=== PATIENT | male | born 1970 | race Caucasian/White ===

== ENCOUNTER 2017-09-15 20:23 | Inpatient (IN) ==
[2017-09-15] MEDS ORDERED: PROMETHAZINE 25 MG/1 ML VIAL IM PRN (23:55)
[2017-09-15] MEDS ORDERED: ACETAMINOPHEN 325 MG TABLET PO PRN (23:55)
[2017-09-15] MEDS ORDERED: TUBERCULIN SKIN TEST 0.1 ML SYRINGE INTRADERM ONE (23:55)
[2017-09-15] MEDS ORDERED: SODIUM CHLORIDE 0.9% 1,000 ML IV ONE (23:55)
[2017-09-15] MEDS ORDERED: MORPHINE 2 MG/1 ML SYRINGE IV PRN (23:55)
[2017-09-15] MEDS ORDERED: ONDANSETRON 4 MG/2 ML VIAL IV PRN (23:55)
[2017-09-15] MEDS ORDERED: NICOTINE 21 MG/24 HR PATCH TRANSDERM PRN (23:55)
[2017-09-16 00:40] LABS: Basophils # 0.1 10*3/uL (0.0-0.2); Basophils % 0.6 % (0.0-0.8); Eosinophils # 0.3 10*3/uL (0.0-0.87); Eosinophils % 2.1 % (0.00-10.9); Hematocrit 42.9 VOL% (42.0-52.0); Hemoglobin 14.1 GM/DL (14.0-18.0); Immature Granulocytes % 0.4 %; Immature Granulocytes Absolute 0.05 #; Lymphocytes # 4.7 10*3/uL (1.4-4.0); Lymphocytes % 35.7 % (21.2-54.2); Mean Corpuscular HGB Conc 32.9 GM/DL (32-36); Mean Corpuscular Hemoglobin 28 PG (27-34); Mean Corpuscular Volume 86.5 FL (87-102); Mean Platelet Volume 10.7 FL (9.6-12.0); Monocytes % 7.9 % (1.7-12.7); Neutrophils % 53.3 % (38.7-73.9); Platelet Count 263 T/CUMM (130-400); Red Blood Count 4.96 MC/CUMM (3.8-5.5); White Blood Count 13.1 T/CUMM (4-12)
[2017-09-16 00:47] LABS: Albumin 3.5 G/DL (3.4-5.0); Bilirubin,Total 1.5 MG/DL (0.2-1.0); Calcium 8.7 MG/DL (8.5-10.1); Magnesium 1.8 MG/DL (1.8-2.4); Osmolality,Calculated 284.1 MOS/KG (273-304); Potassium 4.5 MMOL/L (3.5-5.1); Total Protein 6.3 G/DL (6.4-8.3)
[2017-09-16] MEDS: LEVOFLOXACIN INJ 750 MG in PREMIX 1 EACH IV SCH ×2 (01:28→23:54)
[2017-09-16] MEDS: ENOXAPARIN 40 MG/0.4 ML SYRINGE SUBCUT SCH ×2 (01:29→21:29)
[2017-09-16] MEDS: SODIUM CHLORIDE 0.9% 1,000 ML IV SCH ×5 (02:45→23:54)
[2017-09-16] MEDS: DOCUSATE SODIUM 100 MG CAPSULE PO SCH ×2 (08:32→21:29)
[2017-09-16] MEDS: PANTOPRAZOLE 40 MG TABLET PO SCH (08:32)
[2017-09-16] MEDS ORDERED: ALBUTEROL 2.5 MG/3 ML NEB RESP TX PRN (11:37)
[2017-09-16] MEDS ORDERED: NON-FORMULARY MEDICATION (Umeclidinium Brm/Vilanterol Tr [Anoro Ellipta] 1 PUFF) INH SCH (11:45)
[2017-09-16] MEDS: VALSARTAN 80 MG TABLET PO SCH (12:06)
[2017-09-16] MEDS: MONTELUKAST 10 MG TABLET PO SCH (12:07)
[2017-09-16] MEDS: SERTRALINE 25 MG TABLET PO SCH (12:07)
[2017-09-16] MEDS: ALBUTEROL/IPRATROPIUM 3 ML NEB RESP TX SCH ×2 (14:30→19:50)
[2017-09-17] MEDS: CLORAZEPATE 3.75 MG TABLET PO PRN ×2 (00:07→23:12)
[2017-09-17] MEDS: ALBUTEROL/IPRATROPIUM 3 ML NEB RESP TX SCH ×4 (01:20→18:59)
[2017-09-17 05:37] LABS: Basophils # 0.1 10*3/uL (0.0-0.2); Basophils % 0.9 % (0.0-0.8); Eosinophils # 0.3 10*3/uL (0.0-0.87); Eosinophils % 3.7 % (0.00-10.9); Hematocrit 40.7 VOL% (42.0-52.0); Hemoglobin 13.4 GM/DL (14.0-18.0); Immature Granulocytes % 0.3 %; Immature Granulocytes Absolute 0.03 #; Lymphocytes # 3.3 10*3/uL (1.4-4.0); Lymphocytes % 36.6 % (21.2-54.2); Mean Corpuscular HGB Conc 32.9 GM/DL (32-36); Mean Corpuscular Hemoglobin 29 PG (27-34); Mean Corpuscular Volume 86.4 FL (87-102); Mean Platelet Volume 11.5 FL (9.6-12.0); Monocytes # 0.8 10*3/uL (0.11-0.8); Neutrophils # 4.4 10*3/uL (1.4-7.4); Neutrophils % 49.5 % (38.7-73.9); Platelet Count 235 T/CUMM (130-400); Red Blood Count 4.71 MC/CUMM (3.8-5.5)
[2017-09-17 06:10] LABS: Calcium 8.5 MG/DL (8.5-10.1); Osmolality,Calculated 279.4 MOS/KG (273-304); Potassium 4.3 MMOL/L (3.5-5.1)
[2017-09-17] MEDS: POTASSIUM CHLORIDE 8 MEQ CAPSULE PO SCH ×2 (08:36→20:42)
[2017-09-17] MEDS: VALSARTAN 80 MG TABLET PO SCH (08:37)
[2017-09-17] MEDS: DOCUSATE SODIUM 100 MG CAPSULE PO SCH ×2 (08:37→20:41)
[2017-09-17] MEDS: PANTOPRAZOLE 40 MG TABLET PO SCH (08:37)
[2017-09-17] MEDS: MONTELUKAST 10 MG TABLET PO SCH (08:37)
[2017-09-17] MEDS: FUROSEMIDE 20 MG/2 ML VIAL IV SCH ×2 (08:37→15:05)
[2017-09-17] MEDS: SERTRALINE 25 MG TABLET PO SCH (08:37)
[2017-09-17] MEDS: SODIUM CHLORIDE 0.9% 1,000 ML IV SCH ×2 (08:38→15:05)
[2017-09-17 10:33] LABS: Barbiturates Screen,Urine Negative (Negative); Benzodiazepines Screen,Urine Positive (Negative); Cannabinoid Screen,Urine Negative (Negative); Opiate Screen,Urine Positive (Negative); Phencyclidine Screen,Urine Negative (Negative)
[2017-09-17] MEDS: DORNASE ALFA 2.5 MG/2.5 ML VIAL RESP TX SCH ×2 (11:40→19:13)
[2017-09-17] MEDS: ASPIRIN CHEW 81 MG TABLET PO SCH (14:03)
[2017-09-17] MEDS: CARVEDILOL 3.125 MG TABLET PO SCH ×2 (14:03→20:41)
[2017-09-17] MEDS: SACUBITRIL/VALSARTAN 49-51 MG TABLET PO SCH ×2 (14:03→20:41)
[2017-09-17] MEDS: ENOXAPARIN 40 MG/0.4 ML SYRINGE SUBCUT SCH (20:42)
[2017-09-17] MEDS: LEVOFLOXACIN INJ 750 MG in PREMIX 1 EACH IV SCH (23:11)
[2017-09-18] MEDS: ALBUTEROL/IPRATROPIUM 3 ML NEB RESP TX SCH ×4 (00:29→18:53)
[2017-09-18 04:21] LABS: Bilirubin,Total 1.4 MG/DL (0.2-1.0); Calcium 8.3 MG/DL (8.5-10.1); Total Protein 5.6 G/DL (6.4-8.3)
[2017-09-18 04:22] LABS: Potassium 4.1 MMOL/L (3.5-5.1)
[2017-09-18] MEDS: DORNASE ALFA 2.5 MG/2.5 ML VIAL RESP TX SCH ×2 (08:00→18:53)
[2017-09-18] MEDS ORDERED: DIAZEPAM 5 MG TABLET PO ONE ×2 (08:00→10:53)
[2017-09-18] MEDS ORDERED: POTASSIUM CHLORIDE RIDER 10 MEQ in PREMIX 1 EACH IV PRN (10:53)
[2017-09-18] MEDS ORDERED: MAGNESIUM SULF RIDER 2 GM in PREMIX 1 EACH IV PRN (10:53)
[2017-09-18] MEDS ORDERED: diphenhydrAMINE CAP 25 MG CAPSULE PO ONE (10:53)
[2017-09-18 11:08] LABS: Risk Ratio 4.81; VLDL CHOLESTEROL 15.4 MG/DL
[2017-09-18] MEDS: DOCUSATE SODIUM 100 MG CAPSULE PO SCH ×2 (12:58→21:23)
[2017-09-18] MEDS: PANTOPRAZOLE 40 MG TABLET PO SCH (12:58)
[2017-09-18] MEDS: POTASSIUM CHLORIDE 8 MEQ CAPSULE PO SCH ×2 (12:58→21:24)
[2017-09-18] MEDS: MONTELUKAST 10 MG TABLET PO SCH (12:58)
[2017-09-18] MEDS: GABAPENTIN 100 MG CAPSULE PO SCH ×3 (12:59→21:24)
[2017-09-18] MEDS: traMADol 50 MG TABLET PO SCH ×2 (12:59→21:25)
[2017-09-18] MEDS: ASPIRIN CHEW 81 MG TABLET PO SCH (12:59)
[2017-09-18] MEDS: CARVEDILOL 3.125 MG TABLET PO SCH ×2 (13:00→21:23)
[2017-09-18] MEDS: SERTRALINE 25 MG TABLET PO SCH (13:00)
[2017-09-18] MEDS: SACUBITRIL/VALSARTAN 49-51 MG TABLET PO SCH ×3 (13:01→21:22)
[2017-09-18] MEDS: FUROSEMIDE 20 MG/2 ML VIAL IV SCH ×2 (13:02→16:12)
[2017-09-18] MEDS: ENOXAPARIN 40 MG/0.4 ML SYRINGE SUBCUT SCH (21:27)
[2017-09-19] MEDS: ALBUTEROL/IPRATROPIUM 3 ML NEB RESP TX SCH ×4 (00:06→19:17)
[2017-09-19] MEDS: LEVOFLOXACIN INJ 750 MG in PREMIX 1 EACH IV SCH (01:14)
[2017-09-19 04:55] LABS: Basophils # 0.1 10*3/uL (0.0-0.2); Basophils % 0.6 % (0.0-0.8); Eosinophils # 0.4 10*3/uL (0.0-0.87); Eosinophils % 5.2 % (0.00-10.9); Hematocrit 40.4 VOL% (42.0-52.0); Hemoglobin 13.5 GM/DL (14.0-18.0); Immature Granulocytes % 0.4 %; Immature Granulocytes Absolute 0.03 #; Lymphocytes # 2.9 10*3/uL (1.4-4.0); Lymphocytes % 33.5 % (21.2-54.2); Mean Corpuscular HGB Conc 33.4 GM/DL (32-36); Mean Corpuscular Hemoglobin 29 PG (27-34); Mean Corpuscular Volume 86.5 FL (87-102); Mean Platelet Volume 11.3 FL (9.6-12.0); Monocytes # 0.9 10*3/uL (0.11-0.8); Neutrophils # 4.3 10*3/uL (1.4-7.4); Neutrophils % 50.3 % (38.7-73.9); Platelet Count 254 T/CUMM (130-400); Red Blood Count 4.67 MC/CUMM (3.8-5.5); Red Cell Distribution Width 14.9 % (9.3-17.3); White Blood Count 8.5 T/CUMM (4-12)
[2017-09-19 05:24] LABS: Calcium 8.2 MG/DL (8.5-10.1); Osmolality,Calculated 280.3 MOS/KG (273-304)
[2017-09-19] MEDS ORDERED: LIDOCAINE 1% 20 ML VIAL ONE (07:28)
[2017-09-19] MEDS ORDERED: MEPERIDINE 25 MG/1 ML VIAL ONE (07:41)
[2017-09-19] MEDS ORDERED: MIDAZOLAM 2 MG/2 ML VIAL ONE (07:42)
[2017-09-19] MEDS ORDERED: HEPARIN 5,000 UNIT/1 ML VIAL ONE (07:51)
[2017-09-19] MEDS ORDERED: TIROFIBAN 5,000 MCG/100 ML PREMIX IV ONE (07:58)
[2017-09-19] MEDS ORDERED: TICAGRELOR 90 MG TABLET ONE (07:58)
[2017-09-19] MEDS ORDERED: diphenhydrAMINE CAP 25 MG CAPSULE PO ONE (08:00)
[2017-09-19] MEDS ORDERED: DIAZEPAM 5 MG TABLET PO ONE (08:00)
[2017-09-19] MEDS ORDERED: TIROFIBAN 5,000 MCG/100 ML PREMIX IV SCH (08:16)
[2017-09-19] MEDS ORDERED: NITROGLYCERIN DRIP 50 MG/250 ML BOTTLE IV ONE (08:23)
[2017-09-19] MEDS: DORNASE ALFA 2.5 MG/2.5 ML VIAL RESP TX SCH ×2 (09:11→19:29)
[2017-09-19] MEDS ORDERED: SODIUM CHLORIDE 0.9% 1,000 ML IV SCH (09:30)
[2017-09-19] MEDS: SACUBITRIL/VALSARTAN 49-51 MG TABLET PO SCH ×2 (10:50→21:15)
[2017-09-19] MEDS: CARVEDILOL 3.125 MG TABLET PO SCH ×2 (10:51→21:16)
[2017-09-19] MEDS: MONTELUKAST 10 MG TABLET PO SCH (10:59)
[2017-09-19] MEDS: PANTOPRAZOLE 40 MG TABLET PO SCH (11:00)
[2017-09-19] MEDS: GABAPENTIN 100 MG CAPSULE PO SCH ×3 (11:00→21:16)
[2017-09-19] MEDS: SERTRALINE 25 MG TABLET PO SCH (11:00)
[2017-09-19] MEDS: POTASSIUM CHLORIDE 8 MEQ CAPSULE PO SCH ×2 (11:01→21:16)
[2017-09-19] MEDS: DOCUSATE SODIUM 100 MG CAPSULE PO SCH ×2 (11:02→21:16)
[2017-09-19] MEDS: ASPIRIN CHEW 81 MG TABLET PO SCH ×2 (11:03→11:29)
[2017-09-19] MEDS: traMADol 50 MG TABLET PO SCH ×2 (11:04→21:15)
[2017-09-19] MEDS: FUROSEMIDE 20 MG/2 ML VIAL IV SCH ×2 (11:10→15:35)
[2017-09-19] MEDS: TICAGRELOR 90 MG TABLET PO SCH (21:15)
[2017-09-19] MEDS: traZODone 50 MG TABLET PO PRN (21:15)
[2017-09-19] MEDS: ROSUVASTATIN 10 MG TABLET PO SCH (21:16)
[2017-09-20] MEDS: ALBUTEROL/IPRATROPIUM 3 ML NEB RESP TX SCH ×4 (00:59→19:43)
[2017-09-20] MEDS: LEVOFLOXACIN INJ 750 MG in PREMIX 1 EACH IV SCH (01:43)
[2017-09-20 05:03] LABS: Basophils # 0.1 10*3/uL (0.0-0.2); Basophils % 0.6 % (0.0-0.8); Eosinophils # 0.3 10*3/uL (0.0-0.87); Eosinophils % 3.5 % (0.00-10.9); Hematocrit 42.9 VOL% (42.0-52.0); Hemoglobin 13.7 GM/DL (14.0-18.0); Immature Granulocytes % 0.2 %; Immature Granulocytes Absolute 0.02 #; Lymphocytes # 2.6 10*3/uL (1.4-4.0); Lymphocytes % 30.2 % (21.2-54.2); Mean Corpuscular HGB Conc 31.9 GM/DL (32-36); Mean Corpuscular Hemoglobin 28 PG (27-34); Mean Corpuscular Volume 88.3 FL (87-102); Mean Platelet Volume 10.7 FL (9.6-12.0); Monocytes # 0.9 10*3/uL (0.11-0.8); Monocytes % 10.2 % (1.7-12.7); Neutrophils # 4.7 10*3/uL (1.4-7.4); Neutrophils % 55.3 % (38.7-73.9); Platelet Count 239 T/CUMM (130-400); Red Blood Count 4.86 MC/CUMM (3.8-5.5); Red Cell Distribution Width 14.7 % (9.3-17.3); White Blood Count 8.5 T/CUMM (4-12)
[2017-09-20 05:28] LABS: Albumin 2.9 G/DL (3.4-5.0); Bilirubin,Total 1.1 MG/DL (0.2-1.0); Calcium 8.3 MG/DL (8.5-10.1); Osmolality,Calculated 274.5 MOS/KG (273-304); Total Protein 5.9 G/DL (6.4-8.3)
[2017-09-20] MEDS: DORNASE ALFA 2.5 MG/2.5 ML VIAL RESP TX SCH ×2 (07:37→19:43)
[2017-09-20] MEDS: ASPIRIN CHEW 81 MG TABLET PO SCH (09:05)
[2017-09-20] MEDS: MONTELUKAST 10 MG TABLET PO SCH (09:05)
[2017-09-20] MEDS: PANTOPRAZOLE 40 MG TABLET PO SCH (09:05)
[2017-09-20] MEDS: GABAPENTIN 100 MG CAPSULE PO SCH ×3 (09:05→21:47)
[2017-09-20] MEDS: traMADol 50 MG TABLET PO SCH ×2 (09:05→21:47)
[2017-09-20] MEDS: SERTRALINE 25 MG TABLET PO SCH (09:05)
[2017-09-20] MEDS: CARVEDILOL 3.125 MG TABLET PO SCH ×2 (09:06→21:26)
[2017-09-20] MEDS: SACUBITRIL/VALSARTAN 49-51 MG TABLET PO SCH ×2 (09:06→21:47)
[2017-09-20] MEDS: TICAGRELOR 90 MG TABLET PO SCH ×2 (09:06→21:47)
[2017-09-20] MEDS: POTASSIUM CHLORIDE 8 MEQ CAPSULE PO SCH ×2 (09:06→21:47)
[2017-09-20] MEDS: DOCUSATE SODIUM 100 MG CAPSULE PO SCH ×2 (09:06→21:47)
[2017-09-20] MEDS: FUROSEMIDE 20 MG/2 ML VIAL IV SCH ×2 (09:06→15:04)
[2017-09-20] MEDS: ROSUVASTATIN 10 MG TABLET PO SCH (21:47)
[2017-09-21] MEDS: ALBUTEROL/IPRATROPIUM 3 ML NEB RESP TX SCH ×4 (00:32→21:22)
[2017-09-21] MEDS: LEVOFLOXACIN INJ 750 MG in PREMIX 1 EACH IV SCH (01:30)
[2017-09-21 04:44] LABS: Basophils # 0.1 10*3/uL (0.0-0.2); Basophils % 0.7 % (0.0-0.8); Eosinophils # 0.4 10*3/uL (0.0-0.87); Hematocrit 44.1 VOL% (42.0-52.0); Hemoglobin 14.7 GM/DL (14.0-18.0); Immature Granulocytes % 0.3 %; Immature Granulocytes Absolute 0.03 #; Lymphocytes # 2.5 10*3/uL (1.4-4.0); Lymphocytes % 27.5 % (21.2-54.2); Mean Corpuscular HGB Conc 33.3 GM/DL (32-36); Mean Corpuscular Hemoglobin 29 PG (27-34); Mean Corpuscular Volume 85.5 FL (87-102); Mean Platelet Volume 10.3 FL (9.6-12.0); Monocytes # 0.9 10*3/uL (0.11-0.8); Monocytes % 9.4 % (1.7-12.7); Neutrophils # 5.3 10*3/uL (1.4-7.4); Neutrophils % 58.1 % (38.7-73.9); Platelet Count 253 T/CUMM (130-400); Red Blood Count 5.16 MC/CUMM (3.8-5.5); Red Cell Distribution Width 14.6 % (9.3-17.3); White Blood Count 9.1 T/CUMM (4-12)
[2017-09-21 05:13] LABS: Calcium 8.6 MG/DL (8.5-10.1); Magnesium 1.8 MG/DL (1.8-2.4); Osmolality,Calculated 277.4 MOS/KG (273-304)
[2017-09-21] MEDS: DORNASE ALFA 2.5 MG/2.5 ML VIAL RESP TX SCH ×2 (07:48→21:22)
[2017-09-21] MEDS: ASPIRIN CHEW 81 MG TABLET PO SCH (08:58)
[2017-09-21] MEDS: GABAPENTIN 100 MG CAPSULE PO SCH ×3 (08:58→22:30)
[2017-09-21] MEDS: POTASSIUM CHLORIDE 8 MEQ CAPSULE PO SCH ×2 (08:58→22:31)
[2017-09-21] MEDS: SACUBITRIL/VALSARTAN 49-51 MG TABLET PO SCH ×2 (08:58→22:29)
[2017-09-21] MEDS: DOCUSATE SODIUM 100 MG CAPSULE PO SCH ×2 (08:58→22:32)
[2017-09-21] MEDS: traMADol 50 MG TABLET PO SCH ×2 (08:58→22:32)
[2017-09-21] MEDS: SERTRALINE 25 MG TABLET PO SCH (08:58)
[2017-09-21] MEDS: MONTELUKAST 10 MG TABLET PO SCH (08:58)
[2017-09-21] MEDS: PANTOPRAZOLE 40 MG TABLET PO SCH (08:58)
[2017-09-21] MEDS: LEVOFLOXACIN 500 MG TABLET PO SCH (08:58)
[2017-09-21] MEDS: FUROSEMIDE 20 MG/2 ML VIAL IV SCH ×2 (08:59→15:42)
[2017-09-21] MEDS: CARVEDILOL 3.125 MG TABLET PO SCH ×3 (09:04→22:33)
[2017-09-21] MEDS: ROSUVASTATIN 10 MG TABLET PO SCH (22:29)
[2017-09-21] MEDS: traZODone 50 MG TABLET PO PRN ×2 (22:30→22:37)
[2017-09-22] MEDS: ALBUTEROL/IPRATROPIUM 3 ML NEB RESP TX SCH ×4 (00:55→20:26)
[2017-09-22 05:05] LABS: Calcium 8.5 MG/DL (8.5-10.1); Magnesium 1.9 MG/DL (1.8-2.4); Osmolality,Calculated 277.5 MOS/KG (273-304)
[2017-09-22] MEDS: DORNASE ALFA 2.5 MG/2.5 ML VIAL RESP TX SCH ×2 (07:32→20:30)
[2017-09-22] MEDS: CARVEDILOL 3.125 MG TABLET PO SCH ×3 (09:06→22:35)
[2017-09-22] MEDS: ASPIRIN CHEW 81 MG TABLET PO SCH (09:07)
[2017-09-22] MEDS: SACUBITRIL/VALSARTAN 49-51 MG TABLET PO SCH ×2 (09:07→22:36)
[2017-09-22] MEDS: POTASSIUM CHLORIDE 8 MEQ CAPSULE PO SCH ×2 (09:08→22:35)
[2017-09-22] MEDS: DOCUSATE SODIUM 100 MG CAPSULE PO SCH ×2 (09:08→22:35)
[2017-09-22] MEDS: SERTRALINE 25 MG TABLET PO SCH (09:08)
[2017-09-22] MEDS: PANTOPRAZOLE 40 MG TABLET PO SCH (09:08)
[2017-09-22] MEDS: GABAPENTIN 100 MG CAPSULE PO SCH ×3 (09:08→22:34)
[2017-09-22] MEDS: LEVOFLOXACIN 500 MG TABLET PO SCH (09:08)
[2017-09-22] MEDS: traMADol 50 MG TABLET PO SCH ×2 (09:08→22:35)
[2017-09-22] MEDS: MONTELUKAST 10 MG TABLET PO SCH (09:08)
[2017-09-22] MEDS: FUROSEMIDE 20 MG/2 ML VIAL IV SCH (09:10)
[2017-09-22] MEDS ORDERED: FUROSEMIDE 40 MG TABLET PO SCH (16:00)
[2017-09-22] MEDS: ROSUVASTATIN 10 MG TABLET PO SCH (22:35)
[2017-09-22] MEDS: traZODone 50 MG TABLET PO PRN (22:36)
[2017-09-23] MEDS: ALBUTEROL/IPRATROPIUM 3 ML NEB RESP TX SCH ×3 (00:39→14:15)
[2017-09-23 05:36] LABS: Calcium 8.4 MG/DL (8.5-10.1); Magnesium 2.1 MG/DL (1.8-2.4); Osmolality,Calculated 277.7 MOS/KG (273-304); Potassium 4.2 MMOL/L (3.5-5.1)
[2017-09-23] MEDS: DORNASE ALFA 2.5 MG/2.5 ML VIAL RESP TX SCH (08:12)
[2017-09-23] MEDS ORDERED: FUROSEMIDE 40 MG TABLET PO SCH (09:00)
[2017-09-23] MEDS: MONTELUKAST 10 MG TABLET PO SCH (09:43)
[2017-09-23] MEDS: SACUBITRIL/VALSARTAN 49-51 MG TABLET PO SCH ×2 (09:43→19:35)
[2017-09-23] MEDS: DOCUSATE SODIUM 100 MG CAPSULE PO SCH (09:43)
[2017-09-23] MEDS: CARVEDILOL 3.125 MG TABLET PO SCH (09:43)
[2017-09-23] MEDS: LEVOFLOXACIN 500 MG TABLET PO SCH (09:43)
[2017-09-23] MEDS: ASPIRIN CHEW 81 MG TABLET PO SCH (09:43)
[2017-09-23] MEDS: POTASSIUM CHLORIDE 8 MEQ CAPSULE PO SCH (09:43)
[2017-09-23] MEDS: SERTRALINE 25 MG TABLET PO SCH (09:43)
[2017-09-23] MEDS: PANTOPRAZOLE 40 MG TABLET PO SCH (09:43)
[2017-09-23] MEDS: GABAPENTIN 100 MG CAPSULE PO SCH ×2 (09:43→14:29)
[2017-09-23] MEDS: traMADol 50 MG TABLET PO SCH (09:44)
[2017-09-23] MEDS ORDERED: TICAGRELOR 90 MG TABLET PO SCH (13:00)
[2017-09-23 17:02] VITALS: BP 98/63
[2017-09-23] MEDS ORDERED: ROSUVASTATIN 10 MG TABLET PO SCH (21:00)
== END 2017-09-23 19:40 | disposition home or self-care (01) | DRG 246 ==
LOC: EDUNIT# → EDBD → N.ED 20:23 → N.EDINP 21:33 → SUATTDRO 21:33 → N.5E 21:58 → N.ICU 09-16 12:20 → N.TELEN 09-21 13:07
PROVIDERS: ADMIT Internal Medicine; ATTEND Internal Medicine Nephrology
PROC: CLCCHCL (ICD-10-PCS; 2017-09-19 07:45)